=== PATIENT | female | born 1990 | race African-American/Black ===

== ENCOUNTER 2017-11-11 08:25 | Day surgery (SDC) | payer SELFPAY ==
[~2017-11-11 08:25] MED LIST: Lactated Ringers 1,000 ML IV SCH; Lidocaine 1%/Sod Bicarbonate in NS 8.4% 1 ML Syringe IDERM PRN; Sodium Chloride 0.9% 10 ML Syringe FLUSH PRN
[2017-11-11] MEDS ORDERED: Dexamethasone 4 MG/ML 5 ML MDV ONE (08:48)
[2017-11-11] MEDS ORDERED: ceFAZolin 1 GM Vial ONE (08:48)
[2017-11-11] MEDS ORDERED: Lactated Ringers 1,000 ML ONE ×2 (08:48→11:19)
[2017-11-11] MEDS ORDERED: Rocuronium 50 MG/5 ML Vial ONE (08:48)
[2017-11-11] MEDS ORDERED: Ondansetron 4 MG/2 ML SDV ONE (08:48)
[2017-11-11] MEDS ORDERED: Lidocaine 1% 4 ML ONE (08:48)
[2017-11-11] MEDS ORDERED: Propofol 200 MG/20 ML SDV ONE (08:48)
[2017-11-11] MEDS ORDERED: Ketorolac 30 MG/ML SDV ONE (08:48)
[2017-11-11] MEDS ORDERED: Midazolam 1 MG/ML 2 ML SDV ONE (08:49)
[2017-11-11] MEDS ORDERED: fentaNYL 250 MCG/5 ML SDV ONE (08:49)
--- NOTE | 2017-11-11 09:18 | PCM.PREANE ---
Preanesthetic Assessment - Procedure Proposed Procedure: Diagnostic Laparoscopy - Anesthesia/Transfusion/Family Hx Anesthesia History: No Prior Anesthesia Family History of Anesthesia Reaction: No Transfusion History: No Prior Transfusion(s) - Review of Systems General: No Symptoms Pulmonary: No Symptoms Cardiovascular: Other (faint heart murmer) Gastrointestinal: No Symptoms Neurological: No Symptoms Other: Reports: None - Physical Assessment NPO Status Date: 11/10/17 NPO Status Time: 23:00 O2 Sat by Pulse Oximetry: 96 Respiratory Rate: 16 Vital Signs: Last Vital Signs Temp 37.5 C 11/11/17 08:30 Pulse 82 11/11/17 08:30 Resp 16 11/11/17 08:30 BP 145/89 H 11/11/17 08:30 Pulse Ox 96 11/11/17 08:30 Height: 1.7 m Weight: 58.967 kg ASA Class: 1 Mental Status: Alert & Oriented x3 Airway Class: Mallampati = 1 Dentition: Reports: Normal Dentition Thyro-Mental Finger Breadths: 3 Mouth Opening Finger Breadths: 3 ROM/Head Extension: Full Lungs: Clear to Auscultation, Normal Respiratory Effort Cardiovascular: Regular Rate, Regular Rhythm - Lab Values: Laboratory Last Values WBC 4.20 K/mm3 (3.98-10.04) 11/11/17 08:55 RBC 4.81 M/mm3 (3.98-5.22) 11/11/17 08:55 Hgb 10.9 gm/L (11.2-15.7) L 11/11/17 08:55 Hct 31.7 % (34.1-44.9) L 11/11/17 08:55 MCV 65.9 fl (79.4-94.8) L 11/11/17 08:55 MCH 22.7 pg (25.6-32.2) L 11/11/17 08:55 MCHC 34.4 g/dl (32.2-35.5) 11/11/17 08:55 RDW Std Deviation 47.1 fL (36.4-46.3) H 11/11/17 08:55 Plt Count 321 K/mm3 (182-369) 11/11/17 08:55 MPV 11.2 fl (9.4-12.3) 11/11/17 08:55 Neut % (Auto) 44.2 % (34.0-71.1) 11/11/17 08:55 Lymph % (Auto) 39.3 % (19.3-51.7) 11/11/17 08:55 [place] % (Auto) 10.7 % (4.7-12.5) 11/11/17 08:55 Eos % (Auto) 4.8 (0.7-5.8) 11/11/17 08:55 Baso % (Auto) 1.0 % (0.1-1.2) 11/11/17 08:55 Neut # (Auto) 1.86 K/mm3 (1.56-6.13) 11/11/17 08:55 Lymph # (Auto) 1.65 K/mm3 (1.18-3.74) 11/11/17 08:55 [place] # (Auto) 0.45 K/mm3 (0.24-0.36) H 11/11/17 08:55 Eos # (Auto) 0.20 K/mm3 (0.04-0.36) 11/11/17 08:55 Baso # (Auto) 0.04 K/mm3 (0.01-0.08) 11/11/17 08:55 - Allergies Allergies/Adverse Reactions: Allergies Allergy/AdvReac Type Severity Reaction Status Date / Time No Known Allergies Allergy Verified 11/10/17 14:59 - Blood Blood Available: No Product(s) Available: None - Anesthesia Plan Pre-Op Medication Ordered: None - Acknowledgements Anesthesia Type Planned: General Anesthesia (OETT) Pt an Appropriate Candidate for the Planned Anesthesia: Yes Alternatives and Risks of Anesthesia Discussed w Pt/Guardian: Yes Pt/Guardian Understands and Agrees with Anesthesia Plan: Yes PreAnesthesia Questionnaire HEENT History: Reports: None Cardiovascular History: Reports: Heart Murmur Respiratory History: Reports: None Gastrointestinal History: Reports: Other (See Below) Other Gastrointestinal History: RLQ pain Genitourinary History: Reports: None 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) Other OB/BYN History: abnormal uterine bleeding, left ovarian cyst, SAB, pelvic pain, uterine fibroid Musculoskeletal History: Reports: None Neurological History: Reports: None Psychiatric History: Reports: None Endocrine/Metabolic History: Reports: None Hematologic History: Reports: None Immunologic History: Reports: None Oncologic (Cancer) History: Reports: None Dermatologic History: Reports: None - Past Surgical History Head Surgeries/Procedures: Reports: None HEENT Surgical History: Reports: None Cardiovascular Surgical History: Reports: None Respiratory Surgical History: Reports: None GI Surgical History: Reports: None Female Surgical History: Reports: None Male Surgical History: Reports: None Endocrine Surgical History: Reports: None Neurological Surgical History: Reports: None Musculoskeletal Surgical History: Reports: None Oncologic Surgical History: Reports: None Dermatological Surgical History: Reports: None - SUBSTANCE USE Smoking Status *Q: Never Smoker Recreational Drug Use History: No - HOME MEDS Home Medications: Home Meds Vits #93/Iron Fum/FA [ Formula Tablet] 1 tab PO DAILY 11/10/17 [History] - CURRENT (IN HOUSE) MEDS Current Meds: Current Medications Lactated Ringer's (Ringers, Lactated) 1,000 mls @ 125 mls/hr IV ASDIRECTED TOMMY Stop: 11/11/17 23:00 Lidocaine/Sodium Bicarbonate (Buffered Lidocaine 1% In Ns 8.4%) 0.25 ml IDERM ONETIME PRN PRN Reason: Prior to IV Start Stop: 11/11/17 18:00 Sodium Chloride (Saline Flush) 10 ml FLUSH ASDIRECTED PRN PRN Reason: Keep Vein Open Stop: 11/11/17 18:00 Discontinued Medications Cefazolin Sodium (Ancef) Confirm Administered Dose 2 gm .ROUTE .STK-MED ONE Stop: 11/11/17 08:49 Dexamethasone (Dexamethasone) Confirm Administered Dose 20 mg .ROUTE .STK-MED ONE Stop: 11/11/17 08:49 Fentanyl (Sublimaze) Confirm Administered Dose 250 mcg .ROUTE .STK-MED ONE Stop: 11/11/17 08:50 Lidocaine HCl (Xylocaine-Mpf 1%) Confirm Administered Dose 4 mls @ as directed .ROUTE .STK-MED ONE Stop: 11/11/17 08:49 Lactated Ringer's (Ringers, Lactated) Confirm Administered Dose 1,000 mls @ as directed .ROUTE .STK-MED ONE Stop: 11/11/17 08:49 Ketorolac Tromethamine (Toradol) Confirm Administered Dose 30 mg .ROUTE .STK- MED ONE Stop: 11/11/17 08:49 Midazolam HCl (Versed 1 Mg/Ml) Confirm Administered Dose 2 mg .ROUTE .STK-MED ONE Stop: 11/11/17 08:50 Ondansetron HCl (Zofran) Confirm Administered Dose 4 mg .ROUTE .STK-MED ONE Stop: 11/11/17 08:49 Propofol (Diprivan 20 Ml) Confirm Administered Dose 200 mg .ROUTE .STK-MED ONE Stop: 11/11/17 08:49 Rocuronium [place] (Zemuron) Confirm Administered Dose 50 mg .ROUTE .STK-MED ONE Stop: 11/11/17 08:49
[2017-11-11] MEDS ORDERED: Dextrose 5% in Water 100 ML ONE (09:41)
[2017-11-11] MEDS ORDERED: fentaNYL 100 MCG/2 ML SDV IVPUSH PRN (10:06)
[2017-11-11] MEDS ORDERED: Meperidine 50 MG/ML Vial IVPUSH PRN (10:06)
[2017-11-11] MEDS ORDERED: Ondansetron 4 MG/2 ML SDV IVPUSH PRN (10:06)
[2017-11-11] MEDS ORDERED: diphenhydrAMINE 50 MG/ML SDV IVPUSH PRN (10:06)
[2017-11-11] MEDS ORDERED: HYDROmorphone 0.5 MG/0.5 ML Syringe IVPUSH PRN (10:06)
[2017-11-11] MEDS ORDERED: ePHEDrine 50 MG/ML SDV IVPUSH PRN (10:06)
[2017-11-11] MEDS ORDERED: Phenylephrine 1 MG in Sodium Chloride 0.9% 10 ML IV SCH (10:15)
[2017-11-11] MEDS ORDERED: Bupivacaine 0.5% 30 ML SDV ONE (10:23)
[2017-11-11] MEDS ORDERED: Neostigmine Methylsulfate 1 MG/ML 5 ML Syringe ONE (10:33)
[2017-11-11] MEDS ORDERED: HYDROmorphone 0.5 MG/0.5 ML Syringe ONE (10:37)
[2017-11-11] MEDS: Methylene Blue 50 MG/10 ML Ampule ONE ×2 (10:45→11:30)
--- NOTE | 2017-11-11 12:22 | PCM.POSTAN ---
POST ANESTHESIA ASSESSMENT - MENTAL STATUS Mental Status: Alert - VITAL SIGNS Pulse Rate: 84 SaO2: 100 Resp Rate: 18 Blood Pressure: 138/76 Temperature: 36.3 C - RESPIRATORY Respiratory Status: Respiratory Rate WNL, Airway Patent, O2 Saturation Stable, Supplemental Oxygen - CARDIOVASCULAR CV Status: Pulse Rate WNL, Blood Pressure Stable - GASTROINTESTINAL GI Status: No Symptoms - POST OP HYDRATION Hydration Status: Adequate & Stable
--- NOTE | 2017-11-11 12:37 | PCM.OPNOTE ---
- General Post-Op/Procedure Note Date of Surgery/Procedure: 11/11/17 Operative Procedure(s): Colposcopy with biopsies and endocervical curettage, laparoscopy removal of leiomyoma, laparoscopy with left oophorocystectomy, hysteroscopy with biopsy of endometrium Pre Op Diagnosis: Pelvic pain, fibroid pedunculated from uterus, abnormal uterine bleeding, abnormal Pap smear LGSIL Post-Op Diagnosis: Same Anesthesia Technique: General ET Tube Primary Surgeon: Tom Carnes Secondary Surgeon: Yannick Alfredo Anesthesia Provider: Belle Connelly Finnish [employer]: Clara Alvarez (PA2) Finnish Rubber: Liza Bartholomew (MS3) Reason Finnish Rubber Was Necessary: Assist in surgery, decrease comorbidity and mortality Role of Finnish [employer]ber: Assist in surgery, decrease comorbidity and mortality Fluid Replacement, Intraop: 1,700 Output, Urine Amount: 800 EBL in mLs: 15 Drain/Tube Comments:: Langley placed during surgery and removed after surgery Complications: None Condition: Good Free Text/Narrative:: Patient was transported to the operating room Placed under general anesthesia with endotracheal intubation in the low dorsal lithotomy position. SCDs in place and functioning prior surgery. Ancef 2 g given intravenously prior surgery. Timeout performed confirming name date of and multiple procedures to be performed. The initial procedure performed was colposcopy with directed biopsies that 7:00 and 12:00 and 1:00 after acetic acid staining and Lugol staining revealed decreased staining with Lugol's and white epithelial lesions noted at the cervix at 7:00, 12:00 and 1:00 with no punctations irregular vessels and mosaicism. Biopsies were sent separately. Vaginal prep was then performed with abdominal prep being performed patient draped in a sterile fashion Langley catheter been placed gravity drainage this was removed at the end procedure. Uterine manipulator was placed during the laparoscopic portion of the procedure and removed after that. Uterus sounded to 9 cm. The fibroid could be palpated to the abdominal wall in the lower segment of the abdomen. 2 mL of Marcaine 0.5% injected at the umbilicus and suprapubic area and subsequently left and right lower quadrant areas for introduction of trochars. At the umbilicus very needle was introduced and pneumoperitoneum was obtained without difficulty. The 5 mm self-retaining trocar introduced without difficulty. Prompt visualization of the pelvic organs was accomplished. There was a pedunculated fibroid measuring approximately 8 x 5 x 5 cm the pedicle was approximately 2 cm in width and originated at the area of the insertion of the left round ligament away from the fallopian tube for shortly. Also a ovarian cyst measuring approximately 7 x 7 x 7 cm was noted on the left ovary stretching and elongating the left fallopian tube. Both fallopian tubes appeared normal the right ovary was normal both fimbria of the fallopian tubes appeared normal. The leiomyoma was grasped and transected at the pedicle close to the leiomyoma utilizing Enseal crossclamping activating and incising. Hemostasis was obtained without difficulty. The fibroid was then placed in the posterior cul-de-sac to allow removal of the ovarian cyst. The left ovary was grasped and a small incision made into the ovary cyst wall and the cyst was removed by grasping portions of the cyst wall and countertraction and removed all of the cyst wall could be seen. Irrigation was carried out the irrigant was then aspirated from the cul-de-sac. Saline blue diluted solution was then injected via the uterine manipulator and prompt bilateral spill from both fallopian tube fimbriated ends. The infrapubic incision was enlarged to allow 10 mm port which was introduced Endo bag was then introduced and the palm all was placed into the Endobag. Due to the size of the leiomyoma the incision in the lower segment midline had to be extended to accommodate removal. Because of the size of the fibroid it was necessary to morcellate the fibroid under direct visualization with scissors and this was performed with the fibroid in the Endobag to prevent any spillage into the abdominal cavity. After removing the fibroid the lower abdominal incision was closed running suture for fascial closure. Pneumoperitoneum was reobtained and Interceed was placed over the left ovary to help prevent adhesions hopefully. Surgicel was placed over the operative site where the pedicle of the fibroid had been at the insertion of the round ligament on the serosa of the uterus. Fluid was again aspirated from the cul-de-sac sponge needle pack instrument and sharp count correct 2 and the abdominal cavity had pneumoperitoneum reduced and the trochars were removed the skin was closed with 3-0 subcuticular Monocryl on Tr needle for the low segment midline incision which was transverse in nature. The left and right lower quadrant and umbilical incisions closed with 4-0 interrupted Monocryl Dermabond applied to all the incisions Attention then turned to the pelvis removing the uterine manipulator and the uterine catheter endocervical curettage was performed and sent separately and endometrial cavity was sounded to 8.5 cm and hysteroscopy was performed subsequently D&C was performed obtaining approximately 4 mL of tissue (grams) Silver nitrate was utilized for hemostasis for cervical biopsies had been obtained and all tissue sent to pathology for tissue evaluation No blood transfusions required patient transported postanesthesia care unit in satisfactory condition. Talked with her concerning the findings of the surgery. Images taken: Image 001 reveals left ovarian cyst at the center of the picture and the left fallopian tube coursing over the ovarian cyst Image 002 shows the leiomyomata with thick pedicle approximately 2.60 cm in width. Image 003 shows a right ovary and normal-appearing fallopian tube fimbria Image 004 shows the left fallopian tube fimbria Image 005 shows surgery progress of removal of the leiomyoma with the Enseal Image 006 shows the left ovarian cyst which was subsequently incised and the cyst cavity removed without difficulty. Image 007 shows methylene blue dye spilled from the left fallopian tube Image 008 shows the right ovary and fallopian tube with prompt spill Image 009 shows the Interceed in the left lower half of the ends picture covering the ovary and the Surgicel in the upper portion of the picture covering the base of the stalk of the leiomyoma which was removed Image 010 shows the left lower quadrant incision trocar being removed Image 011 artifact Image 012 shows the right lower quadrant trocar Image 013 shows the left lower quadrant incision where the trocar was removed.
--- NOTE | 2017-11-11 12:42 | PCM48HPAN ---
Post Anesthesia Note - EVALUATION WITHIN 48HRS OF ANESTHETIC Vital Signs in Normal Range: Yes Patient Participated in Evaluation: Yes Respiratory Function Stable: Yes Airway Patent: Yes Cardiovascular Function Stable: Yes Hydration Status Stable: Yes Pain Control Satisfactory: Yes Nausea and Vomiting Control Satisfactory: Yes Mental Status Recovered: Yes
[2017-11-11] MEDS ORDERED: Acetaminophen/oxyCODONE 325-5 MG Tab PO ONE (14:59)
== END 2017-11-11 15:40 | disposition home or self-care (01) ==
LOC: JD.SDS 08:25
PROVIDERS: ATTEND Obstetrics & Gynecology
DX: D25.9 Leiomyoma of uterus, unspecified (principal); N83.12 Corpus luteum cyst of left ovary; N87.1 Moderate cervical dysplasia
CPT/HCPCS: 36415; 84702; 85025; 86850; 86900; 86901; 88305; A9270-GY; C1765; J0690; J1100; J1170; J1885; J2001; J2250; J2405; J2704; J2710; J3010; J3490; J7060; J7120